=== PATIENT | male | born 1990 | race Caucasian/White ===

== ENCOUNTER 2023-06-29 09:06 | Emergency (ER) | payer MEDICAID ==
[~2023-06-29] VITALS: Ht 175.3 cm; Wt 68.0 kg
[2023-06-29] MEDS ORDERED: HYDROCODONE/APAP 5/325MG TABLET ONE (09:51)
[2023-06-29] MEDS: HYDROCODONE/APAP 5/325MG TABLET PO ONE (09:59)
[2023-06-29] MEDS ORDERED: LIDOCAINE 1% INJ 50 ML MDV IJ ONE (10:15)
[2023-06-29] MEDS ORDERED: AMOX-430 PO (10:50)
[2023-06-29 11:03] VITALS: BP 128/68; TEMP 98.4; O2SAT 100
[2023-06-30] MEDS ORDERED: IBUP-1955 PO (08:48)
== END 2023-06-29 11:03 | disposition home or self-care (01) ==
LOC: ER 09:10
DX: S61.212A Laceration without foreign body of right middle finger without damage to nail, initial encounter (principal); W54.0XXA Bitten by dog, initial encounter; Y93.89 Activity, other specified; Y92.89 Other specified places as the place of occurrence of the external cause; Y99.8 Other external cause status
CPT/HCPCS: 12002; 73130; 99283; A6403; J3490

== ENCOUNTER 2023-06-30 08:11 | Emergency (ER) | payer MEDICAID, OTHER ==
[~2023-06-30] VITALS: Ht 177.8 cm; Wt 68.0 kg
[~2023-06-30 08:11] MED LIST: AMOX-430 PO
[2023-06-30] MEDS ORDERED: LIDOCAINE 2% 20 ML MDV ONE (08:39)
[2023-06-30] MEDS ORDERED: IBUP-1955 PO (08:48)
[2023-06-30] MEDS: LIDOCAINE 1% INJ 50 ML MDV IJ ONE (08:50)
[2023-06-30] MEDS ORDERED: LIDOCAINE 1% INJ 50 ML MDV IJ ONE (09:15)
[2023-06-30 10:22] VITALS: BP 146/86; TEMP 98.3; O2SAT 98
== END 2023-06-30 10:22 | disposition home or self-care (01) ==
LOC: ER 08:19
DX: S01.511A Laceration without foreign body of lip, initial encounter (principal); Z79.899 Other long term (current) drug therapy; Y04.8XXA Assault by other bodily force, initial encounter; Y93.89 Activity, other specified; Y92.89 Other specified places as the place of occurrence of the external cause; Y99.8 Other external cause status
CPT/HCPCS: 40650; 70450; 70486; 99284; A6403; J3490